=== PATIENT | male | born 1985 | race Asian ===

== ENCOUNTER 2017-10-13 06:09 | Emergency (ER) | payer MEDICAID, OTHER ==
[2017-10-13 07:02] LABS: Hematocrit 43 % (42-52); Hemoglobin 14.9 g/dl (14.0-18.0); Mean Corpuscular HGB Conc 35 g/dl (31-36); Mean Corpuscular Hemoglobin 29 pg (27-31); Mean Corpuscular Volume 83 fL (80-94); Mean Platelet Volume 9 um3 (7.4-10.4); Red Blood Count 5.18 10^6/ul (4.0-5.4); Red Cell Distribution Width 14 % (10.5-15); White Blood Count 10.1 10^3/ul (3.5-10.8)
[2017-10-13 07:16] LABS: Albumin 4.1 g/dL (3.2-5.2); BUN/Creatinine Ratio 14.3 (8-20); Calcium 9.3 mg/dL (8.6-10.3); EGFR African American 112.6 (>60); EGFR Non-African American 87.6 (>60); Globulin 3.3 g/dL (2-4); Potassium 4.1 mmol/L (3.5-5.0); Total Bilirubin 0.7 mg/dL (0.2-1.0); Total Protein 7.4 g/dL (6.4-8.9)
[2017-10-13] MEDS ORDERED: Meclizine TAB* 12.5 MG PO ONE (08:08)
--- NOTE | 2017-10-13 09:10 | RAD ---
Indication: Vertigo. CT of the brain was performed without IV contrast. Comparison is made with previous exam dated February 12, 2009. Ventricular structures are midline. No midline shift is noted. The extraction spaces are unremarkable. There is no evidence of intracranial mass or hemorrhage. No other high or low density lesions are identified. Tiny focus of hyperdensity in the right basal ganglia likely represent basal ganglia calcification. Mastoid air cells and paranasal sinuses are otherwise unremarkable. IMPRESSION: No intracranial mass or hemorrhage is noted.
[2017-10-13 11:21] VITALS: BP 134/76
--- NOTE | 2017-10-14 10:10 | ED ---
Guanako Celaya Stephanie, scribed for Parag Varela MD on 10/13/17 at 0918 . Dizziness - HPI Summary HPI Summary: The pt is a 32 y/o M with c/o dizziness that began 2 weeks ago but has been worse since starting blood pressure medication 3 days ago prescribed by PCP. The dizziness is characterized as room-spinning dizziness. Symptoms are aggravated by movement, position, and closing of the eyes. Symptoms include pain and pressure in the back of the head. His PCP suggested him to double his blood pressure medication so he took 20 mg of blood pressure medication last night. Pt feels dizzy though the day. Pt recently went to the ED due to concern of high blood pressure. He denies ringing in ear, hearing problems, blurry vision, double vision, CP, vomiting. The pt was positive for a sinus infection within the last week. - History Of Current Complaint Chief Complaint: EDDizziness Stated Complaint: HIGH BP, DIZZY Time Seen by Provider: 10/13/17 07:50 Hx Obtained From: Patient, Family/Supervisor Scouring Pads - Onset/Duration: Still Present Timing: Intermittent Episode Lasting - seconds until alleviated by rest Character: Room Spinning Aggravating Factor(s): Exertion, Position Change, Supine To Erect Alleviating Factor(s): Rest Associated Signs And Symptoms: Positive: Other: - Pain and pressure on the back of head - Allergies/Home Medications Allergies/Adverse Reactions: Allergies Allergy/AdvReac Type Severity Reaction Status Date / Time No Known Allergies Allergy Verified 05/28/14 13:31 PMH/Surg Hx/FS Hx/Imm Hx Cardiovascular History: Reports: Hx Hypercholesterolemia, Hx Hypertension - once only- no meds Respiratory History: Reports: Hx Asthma, Hx Sleep Apnea - evaluation for 01/2014 Musculoskeletal History: Reports: Other Musculoskeletal History - obesity Neurological History: Reports: Hx Migraine Denies: Other Neuro Impairments/Disorders - DENIES Infectious Disease History: No Infectious Disease History: Denies: History Other Infectious Disease, Traveled Outside the [place] in Last 30 Days - Family History Known Family History: Positive: Cardiac Disease, Diabetes - Social History Occupation: Employed Part-time Lives: With Family Alcohol Use: Occasionally Hx Substance Use: No Substance Use Type: Reports: None Smoking Status (MU): Never Smoked Tobacco Review of Systems Positive: Other - pain and pressure on back of head. Negative: Fever, Chills Positive: Other - Negative: double vision. Negative: Blurred Vision, Erythema Positive: Other - Negative: ear ringing, hearing changes. Negative: Sore Throat Negative: Chest Pain Negative: Shortness Of Breath, Cough Negative: Abdominal Pain, Vomiting, Nausea Negative: dysuria, hematuria Negative: Myalgia, Edema Positive: Other - Negative: dizziness. Negative: Rash All Other Systems Reviewed And Are Negative: Yes Physical Exam - Summary Physical Exam Summary: Constitutional: Well-developed, Well-nourished, Alert. (-) Distressed Skin: Warm, Dry HENT: Atraumatic, . Complete serumen impaction in R ear and nearly complete impaction in L ear. Eyes: Conjunctiva normal Neck: Musculoskeletal ROM normal neck. (-) JVD, (-) Stridor, (-) Tracheal deviation Cardio: Rhythm regular, rate normal, Heart sounds normal; Intact distal pulses; The pedal pulses are 2+ and symmetric. Radial pulses are 2+ and symmetric. (-) Murmur Pulmonary/Chest wall: Effort normal. (-) Respiratory distress, (-) Wheezes, (-) Rales Abd: Soft. (-) Tenderness, (-) Distension, (-) Guarding, (-) Rebound Musculoskeletal: (-) Edema Lymph: (-) Cervical adenopathy Neuro: Alert, Oriented x3, Strength normal, Cranial nerves II-XII are grossly intact. (-) Dysmetria, (-) Nystagmus, (-) Ataxia by finger to nose testing, (-) Sensory deficit. Dell Hallpike test negative but pt resported worse symptoms on the left. Psych: Mood and affect Normal Triage Information Reviewed: Yes Vital Signs On Initial Exam: Initial Vitals Temp Pulse Resp BP Pulse Ox 97.1 F 86 18 141/92 97 10/13/17 06:12 10/13/17 06:12 10/13/17 06:12 10/13/17 06:12 10/13/17 06:12 Vital Signs Reviewed: Yes - [place] Coma Scale Coma Scale Total: 15 Diagnostics - Vital Signs Vital Signs Temp Pulse Resp BP Pulse Ox 10/13/17 07:54 78 99 10/13/17 06:12 97.1 F 86 18 141/92 97 - Laboratory Lab Results: Lab Results 10/13/17 10/13/17 Range/Units 06:42 06:42 WBC 10.1 (3.5-10.8) 10^3/ul RBC 5.18 (4.0-5.4) 10^6/ul Hgb 14.9 (14.0-18.0) g/dl Hct 43 (42-52) % MCV 83 (80-94) fL MCH 29 (27-31) pg MCHC 35 (31-36) g/dl RDW 14 (10.5-15) % Plt Count 309 (150-450) 10^3/ul MPV 9 (7.4-10.4) um3 Neut % (Auto) 76.4 (38-83) % Lymph % (Auto) 14.7 L (25-47) % [place] % (Auto) 6.8 (1-9) % Eos % (Auto) 1.1 (0-6) % Baso % (Auto) 1.0 (0-2) % Absolute Neuts (auto) 7.7 (1.5-7.7) 10^3/ul Absolute Lymphs (auto) 1.5 (1.0-4.8) 10^3/ul Absolute Monos (auto) 0.7 (0-0.8) 10^3/ul Absolute Eos (auto) 0.1 (0-0.6) 10^3/ul Absolute Basos (auto) 0.1 (0-0.2) 10^3/ul Absolute Nucleated RBC 0.01 10^3/ul Nucleated RBC % 0.1 Sodium 135 (133-145) mmol/L Potassium 4.1 (3.5-5.0) mmol/L Chloride 102 (101-111) mmol/L Carbon Dioxide 27 (22-32) mmol/L Anion Gap 6 (2-11) mmol/L BUN 14 (6-24) mg/dL Creatinine 0.98 (0.67-1.17) mg/dL Est GFR ( Amer) 112.6 (>60) Est GFR (Non-Af Amer) 87.6 (>60) BUN/Creatinine Ratio 14.3 (8-20) Glucose 98 (70-100) mg/dL Calcium 9.3 (8.6-10.3) mg/dL Total Bilirubin 0.70 (0.2-1.0) mg/dL AST 23 (13-39) U/L ALT 35 (7-52) U/L Alkaline Phosphatase 78 (34-104) U/L Troponin I 0.00 (<0.04) ng/mL Total Protein 7.4 (6.4-8.9) g/dL Albumin 4.1 (3.2-5.2) g/dL Globulin 3.3 (2-4) g/dL Albumin/Globulin Ratio 1.2 (1-3) Result Diagrams: 10/13/17 06:42 10/13/17 06:42 Lab Statement: Any lab studies that have been ordered have been reviewed, and results considered in the medical decision making process. - CT Brain CT Interpretation: No Acute Changes - No intracranial mass or hemorrhage is noted. CT Interpretation Completed By: Radiologist - EKG 06:31 EKG Rhythm: Sinus Rhythm EKG Interpretation: 71 BPM, no STEMI Re-Evaluation - Re-Evaluation 1 Re-Evaluation Time: 09:47 Change: Improved - Pt is walking with a normal gait 2 Re-Evaluation Time: 10:18 Change: Improved - Pt is feeling bettwe Dizzy Course/Dx - Course Course Of Treatment: 2 troponin are negative. No KS. CT is negative. There is no radiographic evidence of stroke. The pt has had symptoms for 2 weeks. There are large serumen impactions bilaterally likely contributing to his positional vertigo. Blood pressure is well controlled today. He should continue 20 mg of Lisinopril. Assessment/Plan: Follow up with PCP in 2 days. - Diagnoses Provider Diagnoses: Vertigo, Cerumen impaction, Hypertension Discharge - Discharge Plan Condition: Fair Disposition: HOME Discharge Disposition Comment: Follow up with PCP in 2 days. Prescriptions: Meclizine TAB* [Antivert 12.5 TAB*] 25 mg PO TID #9 tab Patient Education Materials: Cerumen Impaction (ED), Vertigo (ED) Forms: *Work Release Referrals: No Primary Care Phys,NOPCP [Primary Care Provider] - The documentation as recorded by the Guanako keyes Stephanie accurately reflects the service I personally performed and the decisions made by me, Parag Varela MD.
== END 2017-10-13 11:20 | disposition home or self-care (01) ==
LOC: ED 06:09
DX: R42 Dizziness and giddiness (principal); H61.23 Impacted cerumen, bilateral; I10 Essential (primary) hypertension
CPT/HCPCS: 36415; 70450; 80053; 84484; 85025; 93005; 99283; A9270-GY

== ENCOUNTER 2019-03-03 09:31 | Emergency (ER) | payer OTHER ==
[2019-03-03 11:22] LABS: ABS Eosinophils 0.1 10^3/ul (0-0.6); ABS Lymphocytes 1.4 10^3/ul (1.0-4.8); ABS Monocytes 0.5 10^3/ul (0-0.8); ABS Neutrophils 3.5 10^3/ul (1.5-7.7); Eosinophil % 1.6 %; Hematocrit 44 % (42-52); Hemoglobin 14.6 g/dL (14.0-18.0); Lymphocyte % 25.7 %; Mean Corpuscular HGB Conc 34 g/dL (31-36); Mean Corpuscular Hemoglobin 28 pg (27-31); Mean Corpuscular Volume 85 fL (80-94); Mean Platelet Volume 9.2 fL (7.4-10.4); Nucleated Red Blood Cells % 0.1; Platelet Count 310 10^3/uL (150-450); Red Blood Count 5.15 10^6 /uL (4.18-5.48); Red Cell Distribution Width 15 % (10.5-15); White Blood Count 5.6 10^3/uL (3.5-10.8)
[2019-03-03 11:48] LABS: Albumin 4.3 g/dL (3.2-5.2); Albumin/Globulin Ratio 1.5 (1-3); BUN/Creatinine Ratio 23.1 (8-20); Calcium 9.3 mg/dL (8.6-10.3); EGFR African American 114.7 (>60); EGFR Non-African American 94.8 (>60); Globulin 2.9 g/dL (2-4); Potassium 4.3 mmol/L (3.5-5.0); Total Bilirubin 0.5 mg/dL (0.2-1.0); Total Protein 7.2 g/dL (6.4-8.9)
--- NOTE | 2019-03-03 12:42 | ED ---
HPI Chest Pain - HPI Summary HPI Summary: Patient is a 33-year-old male with no significant PMH presenting to the ED with left-sided chest pain which was sharp, lasting a few seconds and happened on 3 different occasions over the course of 30 minutes just prior to arrival. He denies any SOB. Denies any abdominal pain, urinary symptoms, headache, visual changes. He states he has no past medical history, but mother did at the age of 40 from an NV. Patient states he had high blood pressure as well as diabetes, both of which he does not have. He states he takes no medications and is otherwise healthy. This is never happened to him before. Symptoms are worse with palpation. Denies any fevers, sweats, chills. Denies any worsening pain with inspiration. Takes no medication. Denies allergies. Symptoms aggravated with palpation, resolved spontaneously. He was at rest while sxs occurred. Symptoms resolved [employer]. Denies pain now. Pain only with palpation. Temp 97.8, heart rate 79, respirations 18, 98% on room air, 144/88 - History of Current Complaint Chief Complaint: EDChestPainROMI Time Seen by Provider: 03/03/19 10:31 Hx Obtained From: Patient Onset/Duration: Started Minutes Ago Timing: Constant Initial Severity: Mild Current Severity: Mild Pain Intensity: 6 Pain Scale Used: 0-10 Numeric Chest Pain Location: Left Anterior Chest Pain Radiates: No Aggravating Factor(s): Nothing Alleviating Factor(s): Nothing Associated Signs and Symptoms: Positive: Negative. Negative: Vision Changes, Anxiety, Recent Stress, Headaches, Numbness, Dizziness, Shortness of Breath, Swelling, Lightheadedness, Diaphoresis, Nausea, Palpitations - Risk Factors Pulmonary Embolism Risk Factors: Negative TAD Risk Factors: Negative AMI/ACS Risk Factors: Family History - Allergy/Home Medications Allergies/Adverse Reactions: Allergies Allergy/AdvReac Type Severity Reaction Status Date / Time No Known Allergies Allergy Verified 05/28/14 13:31 Home Medications: Home Medications Valsartan/HCTZ 160/25(NF) [Diovan Hct 160/25(NF)] 1 tab PO DAILY 03/03/19 [ History Confirmed 03/03/19] PMH/Surg Hx/FS Hx/Imm Hx Previously Healthy: Yes Cardiovascular History: Reports: Hx Hypercholesterolemia, Hx Hypertension - once only- no meds Respiratory History: Reports: Hx Asthma, Hx Sleep Apnea - evaluation for 01/2014 Musculoskeletal History: Reports: Other Musculoskeletal History - obesity Neurological History: Reports: Hx Migraine Denies: Other Neuro Impairments/Disorders - DENIES - Immunization History Hx Pertussis Vaccination: No Immunizations Up to Date: Yes Infectious Disease History: No Infectious Disease History: Denies: History Other Infectious Disease, Traveled Outside the [place] in Last 30 Days - Family History Known Family History: Positive: Cardiac Disease, Diabetes - Social History Occupation: Employed Full-time Lives: With Family Alcohol Use: Occasionally Hx Substance Use: No Substance Use Type: Reports: None Smoking Status (MU): Never Smoked Tobacco Review of Systems Constitutional: Negative Negative: Fever, Chills, Fatigue, Skin Diaphoresis Positive: Chest Pain - left anterior/axillary . Negative: Palpitations Negative: Shortness Of Breath, Cough Genitourinary: Negative Positive: no symptoms reported, see HPI Positive: Myalgia - left anterior chest wall Negative: Rash, Bruising Neurological: Negative All Other Systems Reviewed And Are Negative: Yes Physical Exam Triage Information Reviewed: Yes Vital Signs On Initial Exam: Initial Vitals Temp Pulse Resp BP Pulse Ox 97.8 F 79 18 144/88 98 03/03/19 09:39 03/03/19 09:39 03/03/19 09:39 03/03/19 09:39 03/03/19 09:39 Vital Signs Reviewed: Yes Appearance: Positive: Well-Appearing, Well-Nourished Skin: Positive: Skin Color Reflects Adequate Perfusion Head/Face: Positive: Normal Head/Face Inspection Eyes: Positive: EOMI, JOSE MIGUEL, Conjunctiva Clear Neck: Positive: Supple, No Lymphadenopathy Respiratory/Lung Sounds: Positive: Clear to Auscultation, Breath Sounds Present Cardiovascular: Positive: RRR, Pulses are Symmetrical in both Upper and Lower Extremities Musculoskeletal: Positive: Normal, Strength/ROM Intact Neurological: Positive: Sensory/Motor Intact, Alert, Oriented to Person Place, Time Psychiatric: Positive: Normal, Affect/Mood Appropriate AVPU Assessment: Alert Diagnostics - Vital Signs Vital Signs Temp Pulse Resp BP Pulse Ox 03/03/19 09:39 97.8 F 79 18 144/88 98 - Laboratory Lab Results: Lab Results 03/03/19 03/03/19 03/03/19 Range/Units 11:15 11:15 11:15 WBC 5.6 (3.5-10.8) 10^3/uL RBC 5.15 (4.18-5.48) 10^6 /uL Hgb 14.6 (14.0-18.0) g/dL Hct 44 (42-52) % MCV 85 (80-94) fL MCH 28 (27-31) pg MCHC 34 (31-36) g/dL RDW 15 (10.5-15) % Plt Count 310 (150-450) 10^3/uL MPV 9.2 (7.4-10.4) fL Neut % (Auto) 62.3 % Lymph % (Auto) 25.7 % [place] % (Auto) 9.7 % Eos % (Auto) 1.6 % Baso % (Auto) 0.7 % Absolute Neuts (auto) 3.5 (1.5-7.7) 10^3/ul Absolute Lymphs (auto) 1.4 (1.0-4.8) 10^3/ul Absolute Monos (auto) 0.5 (0-0.8) 10^3/ul Absolute Eos (auto) 0.1 (0-0.6) 10^3/ul Absolute Basos (auto) 0.0 (0-0.2) 10^3/ul Absolute Nucleated RBC 0.0 10^3/ul Nucleated RBC % 0.1 Sodium 138 (135-145) mmol/L Potassium 4.3 (3.5-5.0) mmol/L Chloride 107 (101-111) mmol/L Carbon Dioxide 25 (22-32) mmol/L Anion Gap 6 (2-11) mmol/L BUN 21 (6-24) mg/dL Creatinine 0.91 (0.67-1.17) mg/dL Est GFR ( Amer) 114.7 (>60) Est GFR (Non-Af Amer) 94.8 (>60) BUN/Creatinine Ratio 23.1 H (8-20) Glucose 96 (70-100) mg/dL Lactic Acid 0.6 (0.5-2.0) mmol/L Calcium 9.3 (8.6-10.3) mg/dL Total Bilirubin 0.50 (0.2-1.0) mg/dL AST 25 (13-39) U/L ALT 36 (7-52) U/L Alkaline Phosphatase 62 (34-104) U/L Troponin I 0.00 (<0.04) ng/mL Total Protein 7.2 (6.4-8.9) g/dL Albumin 4.3 (3.2-5.2) g/dL Globulin 2.9 (2-4) g/dL Albumin/Globulin Ratio 1.5 (1-3) Result Diagrams: 03/03/19 11:15 03/03/19 11:15 Lab Statement: Any lab studies that have been ordered have been reviewed, and results considered in the medical decision making process. Chest Pain Course/Dx - Course Course Of Treatment: During this course treatment, the patient is evaluated for left-sided chest pain worse with palpation. He denies any other symptoms. He states he was concerned as his mother of NV at age of 40. Labs obtained which are WNL including a troponin of 0.00. Chest x-ray shows no acute cardiopulmonary disease. Patient appears well, nondiaphoretic and nontoxic appearing. Lungs CTA, RRR. Denies any pain currently. On physical examination , on palpation over the left anterior chest wall, patient endorses some discomfort. Discomfort also with movement of abduction and abduction of the left shoulder. Discussed with the patient this is likely musculoskeletal due to pain with palpation and movement, and asymptomatic at rest. EKG shows no acute findings, normal sinus rhythm. Patient will be discharged with musculoskeletal pain. - Chest Pain Differential Diagnosis/HQI/PQRI: Chest Wall - Diagnoses Provider Diagnoses: Chest wall pain, Musculoskeletal chest pain Discharge - Sign-Out/Discharge Documenting (check all that apply): Patient Departure Patient Received Moderate/Deep Sedation with Procedure: No - Discharge Plan Condition: Good Disposition: HOME Patient Education Materials: Chest Wall Pain (ED) Forms: *Work Release Referrals: No Primary Care Phys,NOPCP [Primary Care Provider] - Additional Instructions: Ibuprofen 600mg three times daily as needed for chest wall pain Moist heat to the area may help - Billing Disposition and Condition Condition: GOOD Disposition: Home
[2019-03-03 12:46] VITALS: BP 117/71
== END 2019-03-03 12:45 | disposition home or self-care (01) ==
LOC: ED 09:31
DX: R07.89 Other chest pain (principal); Z82.49 Family history of ischemic heart disease and other diseases of the circulatory system; Z79.899 Other long term (current) drug therapy
CPT/HCPCS: 36415; 71045; 80053; 83605; 84484; 85025; 93005; 99283

== ENCOUNTER 2019-09-24 09:42 | Emergency (ER) | payer OTHER ==
[2019-09-24 10:21] LABS: ABS Basophils 0.1 10^3/ul (0-0.2); ABS Eosinophils 0.2 10^3/ul (0-0.6); ABS Lymphocytes 1.3 10^3/ul (1.0-4.8); ABS Monocytes 0.5 10^3/ul (0-0.8); Hematocrit 46 % (42-52); Hemoglobin 15.7 g/dL (14.0-18.0); Lymphocyte % 21.3 %; Mean Corpuscular HGB Conc 34 g/dL (31-36); Mean Corpuscular Hemoglobin 29 pg (27-31); Mean Corpuscular Volume 85 fL (80-94); Mean Platelet Volume 9.1 fL (7.4-10.4); Nucleated Red Blood Cells % 0.1; Platelet Count 282 10^3/uL (150-450); Red Blood Count 5.45 10^6 /uL (4.18-5.48); Red Cell Distribution Width 14 % (10-15); White Blood Count 6.1 10^3/uL (3.5-10.8)
[2019-09-24] MEDS ORDERED: Nitroglycerin TAB 0.4 MG* 0.4 MG TAB SL ONE (10:25)
[2019-09-24] MEDS ORDERED: Aspirin 81 mg CHEW TAB* 81 MG TAB.CHEW PO ONE (10:25)
[2019-09-24 10:27] LABS: INR 1.03 (0.82-1.09)
--- NOTE | 2019-09-24 10:35 | ED ---
HPI Chest Pain - HPI Summary HPI Summary: The patient is a 34 y/o M presenting to [facility] with a chief complaint of two episodes of sudden onset left anterior chest pain since this morning. He reports that he was woken up early this morning as he felt a sudden sharp pain in the left chest rated 10/10 at the time. The pain then subsided, and he went back to sleep. He was driving to work this morning when the pain returned with a sharp, stabbing pain. The pain decreased, but it is still present as a tightness rated 6/10 in severity. The pain does not radiate at all. He denies any diaphoresis, dizziness, nausea, or shortness of breath. He has not used any medications prior to arrival to treat the pain. PMHx: HTN, GERD, asthma. FHx: mother [place] age 40. Nonsmoker, occasional EtOH, no substance use. Medications reviewed. Allergies noted. - History of Current Complaint Chief Complaint: EDChestPainROMI Time Seen by Provider: 09/24/19 10:19 Hx Obtained From: Patient Onset/Duration: Started Hours Ago, Still Present Timing: Intermittent, Lasting Minutes Initial Severity: Severe Current Severity: Moderate Pain Intensity: 6 Pain Scale Used: 0-10 Numeric Chest Pain Location: Left Anterior Chest Pain Radiates: No Character: Sharp/Stabbing - intermittent episodes, Tightness - now Aggravating Factor(s): Nothing Alleviating Factor(s): Spontaneous Resolution Associated Signs and Symptoms: Positive: Chest Pain. Negative: Dizziness, Shortness of Breath, Diaphoresis, Nausea - Allergy/Home Medications Allergies/Adverse Reactions: Allergies Allergy/AdvReac Type Severity Reaction Status Date / Time No Known Allergies Allergy Verified 05/28/14 13:31 Home Medications: Home Medications Pantoprazole TAB * [Protonix TAB*] 40 mg PO DAILY 09/24/19 [History Confirmed ] PMH/Surg Hx/FS Hx/Imm Hx Endocrine/Hematology History: Denies: Hx Diabetes Cardiovascular History: Reports: Hx Hypercholesterolemia, Hx Hypertension - once only- no meds Respiratory History: Reports: Hx Asthma, Hx Sleep Apnea - evaluation for 01/2014 Musculoskeletal History: Reports: Other Musculoskeletal History - obesity Neurological History: Reports: Hx Migraine Denies: Other Neuro Impairments/Disorders - DENIES - Surgical History Surgical History: None Surgery Procedure, Year, and Place: none Infectious Disease History: No Infectious Disease History: Denies: History Other Infectious Disease, Traveled Outside the [place] in Last 30 Days - Family History Known Family History: Positive: Cardiac Disease - mother [place] age 40, Diabetes - Social History Alcohol Use: Occasionally Hx Substance Use: No Substance Use Type: Reports: None Hx Tobacco Use: No Smoking Status (MU): Never Smoked Tobacco Review of Systems Negative: Skin Diaphoresis Positive: Chest Pain - left anterior, sharp and tight Negative: Shortness Of Breath Negative: Nausea Neurological: Other - Negative: dizziness All Other Systems Reviewed And Are Negative: Yes Physical Exam - Summary Physical Exam Summary: VITAL SIGNS: Reviewed. GENERAL: Patient is a well-developed and nourished male who is lying comfortable in the stretcher. Patient is not in any acute respiratory distress. HEAD AND FACE: No signs of trauma. No ecchymosis, hematomas or skull depressions. No sinus tenderness. EYES: PERRLA, EOMI x 2, No injected conjunctiva, no nystagmus. EARS: Hearing grossly intact. Ear canals and tympanic membranes are within normal limits. MOUTH: Oropharynx within normal limits. NECK: Supple, trachea is midline, no adenopathy, no JVD, no carotid bruit, no c- spine tenderness, neck with full ROM. CHEST: Symmetric, no tenderness at palpation. LUNGS: Clear to auscultation bilaterally. No wheezing or crackles. CVS: Regular rate and rhythm, S1 and S2 present, no murmurs or gallops appreciated. ABDOMEN: Soft, non-tender. No signs of distention. No rebound, no guarding, and no masses palpated. Bowel sounds are normal. EXTREMITIES: FROM in all major joints, no edema, no cyanosis or clubbing. NEURO: Alert and oriented x 3. No acute neurological deficits. Speech is normal and follows commands. SKIN: Dry and warm. Triage Information Reviewed: Yes Vital Signs On Initial Exam: Initial Vitals Temp Pulse Resp BP Pulse Ox 97.3 F 77 18 136/94 100 09/24/19 09:51 09/24/19 09:51 09/24/19 09:51 09/24/19 09:51 09/24/19 09:51 Vital Signs Reviewed: Yes Procedures - Sedation Patient Received Moderate/Deep Sedation with Procedure: No Diagnostics - Vital Signs Vital Signs Temp Pulse Resp BP Pulse Ox 09/24/19 09:51 97.3 F 77 18 136/94 100 - Laboratory Lab Results: Lab Results 09/24/19 Range/Units 10:13 WBC 6.1 (3.5-10.8) 10^3/uL RBC 5.45 (4.18-5.48) 10^6 /uL Hgb 15.7 (14.0-18.0) g/dL Hct 46 (42-52) % MCV 85 (80-94) fL MCH 29 (27-31) pg MCHC 34 (31-36) g/dL RDW 14 (10-15) % Plt Count 282 (150-450) 10^3/uL MPV 9.1 (7.4-10.4) fL Neut % (Auto) 65.7 % Lymph % (Auto) 21.3 % [place] % (Auto) 8.0 % Eos % (Auto) 4.0 % Baso % (Auto) 1.0 % Absolute Neuts (auto) 4.0 (1.5-7.7) 10^3/ul Absolute Lymphs (auto) 1.3 (1.0-4.8) 10^3/ul Absolute Monos (auto) 0.5 (0-0.8) 10^3/ul Absolute Eos (auto) 0.2 (0-0.6) 10^3/ul Absolute Basos (auto) 0.1 (0-0.2) 10^3/ul Absolute Nucleated RBC 0.0 10^3/ul Nucleated RBC % 0.1 Result Diagrams: 09/24/19 10:13 09/24/19 10:13 Lab Statement: Any lab studies that have been ordered have been reviewed, and results considered in the medical decision making process. - Radiology Chest X-Ray Radiology Interpretation Completed By: Radiologist Summary of Radiographic Findings: Impression: No acute cardiopulmonary process by radiograph. ED physician has reviewed this report. - EKG 0945 Cardiac Rate: NL - 77 BPM EKG Rhythm: Sinus Rhythm EKG Comparison: No Significant Change - Similar to previous on 03/03/2019. Summary of EKG Findings: EKG at 0945 reveals normal sinus rhythm at 77 BPM. Multiple PVCs. No ST elevations. ED physician has reviewed and interpreted this EKG. 1314 Cardiac Rate: NL - 68 BPM EKG Rhythm: Sinus Rhythm EKG Comparison: No Significant Change - Similar to previous taken today. Summary of EKG Findings: EKG at 1314 reveals normal sinus rhythm at 68 BPM. Multiple PVCs. No ST elevations. ED physician has reviewed and interpreted this EKG. Re-Evaluation - Re-Evaluation First Eval Re-Evaluation Time: 12:39 Change: Unchanged Comment: Patient still experiencing chest pain. Will administer Toradol. Chest Pain Course/Dx - Course Assessment/Plan: This patient is a 34-year-old male who presents to the emergency department with chief complaint having chest pain. Chest pain is not on exertion. He reports sharp pain. EKG is a normal sinus rhythm without any ST elevations. Blood work without a significant abnormality except for glucose of 102. Troponin 1 is 0.00. Patient was given nitroglycerin with no significant improvement of symptoms. Heart score is equal to 1. Chest x-ray impression: No acute coronary pulmonary process. Second troponin 4 hours apart is also 0.00. In the ED course, the patient was given Toradol and the symptoms significantly improved. Patient reports that all symptoms have resolved. I discussed all the findings and test results with the patient. Patient was instructed to return to the emergency room immediately if any of the symptoms return or worsen. Patient understands and agrees. Plan of care was discussed with the patient and patient understands and agrees. All questions were answered at patient satisfaction. There were no further complaints or concerns. PE before discharge : CVS: S1 and S2 present. No murmurs appreciated. Abdominal exam before discharge: Soft, non-tender. No signs of distention. No rebound, no guarding, and no masses palpated. Bowel sounds are normal. Patient is alert and oriented x 3. Patient is hemodynamically stable. - Chest Pain Differential Diagnosis/HQI/PQRI: Acute CA, ACS, Angina, CHF, Chest Wall, GI Disease, Lower Respiratory Infection, Pulmonary Edema - Diagnoses Provider Diagnoses: Atypical chest pain Discharge ED - Sign-Out/Discharge Documenting (check all that apply): Patient Departure - Patient will be discharged home. - Discharge Plan Condition: Stable Disposition: HOME Patient Education Materials: Chest Pain (ED) Referrals: Wesley Baker PA [Primary Care Provider] - 3 Days Additional Instructions: Follow up with your primary care provider in 2-3 days. Return to the emergency department for any new or worsening symptoms. - Attestation Statements Document Initiated by Scribe: Yes Documenting Scribe: Cristina Meng Provider For Whom Scribe is Documenting (Include Credential): Dr. Suleman Hutchins MD Scribe Attestation: I, Cristina Meng, scribed for Dr. Suleman Hutchins MD on 09/24/19 at 1335. Status of Scribe Document: Ready
[2019-09-24 10:38] LABS: Albumin 4.4 g/dL (3.2-5.2); Albumin/Globulin Ratio 1.4 (1-3); BUN/Creatinine Ratio 15.8 (8-20); Calcium 9.7 mg/dL (8.6-10.3); EGFR African American 101.1 (>60); EGFR Non-African American 83.6 (>60); Globulin 3.1 g/dL (2-4); Total Bilirubin 0.5 mg/dL (0.2-1.0); Total Protein 7.5 g/dL (6.4-8.9)
[2019-09-24 11:09] LABS: Potassium 4.4 mmol/L (3.5-5.0)
[2019-09-24] MEDS ORDERED: Ketorolac INJ* 30 MG/ML 1 ML VIAL IV PUSH ONE (12:41)
[2019-09-24 15:13] VITALS: BP 124/68
== END 2019-09-24 15:08 | disposition home or self-care (01) ==
LOC: ED 09:42
DX: R07.89 Other chest pain (principal); I10 Essential (primary) hypertension; K21.9 Gastro-esophageal reflux disease without esophagitis
CPT/HCPCS: 36415; 71045; 80053; 84484; 85025; 85610; 93005; 96374; 99284; A9270-GY; J1885